=== PATIENT | female | born 1980 | race Caucasian/White ===

== ENCOUNTER 2020-03-07 09:01 | Emergency (ER) | payer OTHER, MEDICAID, SELFPAY ==
[2020-03-07 09:04] VITALS: BP 113/82; PULSE 104; RESP 18; TEMP 36.8; O2SAT 97; BMI 32.6
--- NOTE | 2020-03-07 09:13 | CT_ITS ---
WS: [id number] CT ABDOMEN PELVIS TECHNIQUE: Contrast-enhanced CT of the abdomen and pelvis with coronal and sagittal reformatted image s. CLINICAL INFORMATION: abd pain COMPARISON: None. DLP: 1659.[address] scans at [facility] use at least one of these dose optimization techniques: automat ed exposure control; mA and/or kV adjustment per patient size (includes targeted exams where dose is matched to clinical indication); or iterative reconstruction. FINDINGS: Mild diffuse fatty infiltration of the liver. Normal portal vein and splenic vein. Normal spleen. Pat fredo infiltrates in the left lower lobe. Recommend correlation for pneumonia. Tiny partially visualize d noncalcified nodule in the right middle lobe measuring 4 mm. 14 mm right adrenal adenoma. Normal left adrenal gland. Normal renal parenchymal enhancement. No hydr onephrosis. No evidence of small or large bowel obstruction. Normal caliber abdominal aorta. No abdominal lymphad enopathy. No inguinal or pelvic lymphadenopathy. Mild disc bulging L4-5. CT/CT abdomen pelvis w con* [id number] IMPRESSION: 1. Diffuse fatty infiltration of the liver. 2. 14 mm adrenal adenoma. 3. Hazy groundglass infiltrates left lower lobe. Recommend correlation for pne umonia. 4. 4 mm noncalcified nodule right middle lobe. Recommend 12 month follow-up ch est CT. 5. No obstructing renal parenchymal or ureteral calculi. 6. No free fluid in the pelvis. Attempted Marcos Suh DO at 03/07/2020 9:58 AM.
--- NOTE | 2020-03-07 09:23 | W.ED.ABDPA2 ---
HPI - Abdominal Pain General: Chief Complaint: Abdominal Pain Stated Complaint: luq pain Time Seen by Provider: 03/07/20 09:11 History of Present Illness: HPI narrative: 39-year-old female presents emergency room with complaint of abdominal pain off and on for last 2 days she not really notice any exacerbating or relieving factors not noticed any triggers eating or not eating does not seem to have made a difference. She had a similar episode a few months ago that resolved after not eating for about 24 hours. Today she relates most of her pain left upper quadrant. She has noted nausea vomiting and diarrhea. She denies any hematochezia melena hematemesis or coffee-ground emesis no dysuria urgency or frequency she does not drink alcohol at all. MD elicited complaint: abdominal pain Pertinent past history: none Onset (ago): day(s) (2) Pain Consistency: intermittent Location: LUQ Severity: moderate Quality: cramping Radiation: none Migration to: no migration Exacerbating factors: nothing Relieving factors: nothing Associated Symptoms: Reports anorexia, bloating, GI cramping, diarrhea, nausea and vomiting; Denies belching, change in bowel habits, change in stool character, chills, coffee ground emesis, constipation, dyspepsia, dysuria, excessive flatus, fever(s), heartburn, hematochezia, hematuria, hematemesis, fecal incontinence, loose stools, melena, poor appetite and syncope Review of Systems Const: Denies: fever(s) or chills ENMT: Denies: throat pain, ear or mastoid pain, nasal discharge or nasal congestion Card: Denies: syncope Resp: Denies: dyspnea, productive cough or non-productive cough GI: Reports: nausea, vomiting, diarrhea, bloating and GI cramping; Denies: hematemesis, coffee ground emesis, heartburn, constipation, belching, excessive flatus, fecal incontinence, change in bowel habits, change in stool character, hematochezia or melena : Denies: dysuria or hematuria Skin/Breast: Denies: rash or pruritus PFSH ED PFSH: Medical History (Updated 03/08/20 @ 22:11 by Ranjit Love MD) No significant past medical history Surgical History H/O wisdom tooth extraction Hx of tympanostomy tubes Social History Smoking and tobacco status: never smoked Alcohol intake: never Substance/Drug Use: never Lives independently: Yes Household members: children Marital status: Single Current occupational status: employed Current occupation: [employer] [place] Current occupational exposures/hazards: No History of recent travel: No Current gender identity: Female Physical Exam Const: COMMON NORMALS: average body habitus, patient oriented x3 and alert GENERAL APPEARANCE: cooperative, comfortable, well kempt and well developed NUTRITIONAL APPEARANCE: obese ORIENTATION/CONSCIOUSNESS: Yes awake, Yes oriented to person and Yes oriented to place HENMT: COMMON NORMALS: normocephalic, atraumatic and EAC's normal HEAD & SCALP: normocephalic and atraumatic EXTERNAL AUDITORY CANAL: EAC's normal Eye: COMMON NORMALS: Equal, round and reactive pupils present, EOMs intact bilaterally, conjunctivae normal and no scleral icterus CONJUNCTIVA: Yes conjunctivae normal PUPIL: Yes Equal, round and reactive pupils present Neck/C-Spine: COMMON NORMALS: full ROM, no lymphadenopathy, supple, no meningeal signs and Thyroid normal THYROID: Thyroid normal and asymmetrical Lymph: LYMPHATIC: no lymphadenopathy noted Resp: COMMON NORMALS: normal respiratory effort, No retractions, No use of accessory muscles and clear to auscultation bilaterally AUSCULTATION: clear to auscultation bilaterally Cardio: COMMON NORMALS: regular rate and regular rhythm RATE: regular rate RHYTHM: regular rhythm HEART SOUNDS: no murmurs GI: COMMON NORMALS: Normal to inspection, nondistended, normoactive bowel sounds present, Soft to palpation and No hepatosplenomegaly present PALPATION: Yes Soft to palpation, Yes Tenderness to palpation present (GI) Details: LUQ, No Guarding due to palpation present (GI), No Rigid due to palpation and Yes No hepatosplenomegaly present : COMMON NORMALS: Yes no CVA tenderness BLADDER/KIDNEY EXAM: Yes no CVA tenderness Back/Pelvis: COMMON NORMALS: no CVA tenderness LUMBAR SPINE/LOWER BACK: Yes normal to inspection Extremity: COMMON NORMALS: no clubbing, cyanosis or edema, no calf tenderness and no pedal edema Neuro: COMMON NORMALS: patient oriented x3 SENSORIUM/ORIENTATION: Yes alert, Yes oriented to person and Yes oriented to place MENINGEAL SIGNS: Yes no meningeal signs Psych: APPEARANCE: Yes well kempt Skin: COMMON NORMALS: no rashes or lesions noted and turgor normal GENERAL SKIN EXAM: no rashes or lesions noted and turgor normal Course Vital Signs: Vital signs: Vital Signs Temperature 98.2 F 03/07/20 09:04 Pulse Rate 75 03/07/20 11:44 Respiratory Rate 15 03/07/20 11:44 Blood Pressure 148/70 03/07/20 11:44 Pulse Oximetry 97 03/07/20 11:44 MDM - Abdominal Pain MDM Narrative: Medical decision making narrative: Patient does have mild changes on her chest x-ray and noted on the CT. Her rapid antigen is positive will back up with a PCR test. Advised patient to maintain quarantined for follow-up with employee health as well as discussed with her that health department would likely be calling her. She has any worsening change or problems return to the emergency room. Lab Data: Labs: Lab Results 03/07/20 03/07/20 03/07/20 Range/Units 09:24 09:24 09:24 WBC 4.5 (4.0-10.0) 10^3/ uL RBC 5.06 (4.1-5.3) 10^6/u L Hgb 13.6 (11.5-15.3) g/dL Hct 43.9 (37.0-47.0) % MCV 86.8 (81-99) fL MCH 26.9 L (28.0-34.0) pg MCHC 31.0 (30.0-36.0) g/dL RDW 13.9 (12.1-15.1) % Plt Count 440 H (130-400) 10^3/c mm MPV 9.1 (7.4-10.4) fL Neut % (Auto) 68.6 % Lymph % (Auto) 25.0 % [place] % (Auto) 6.0 % Eos % (Auto) 0.2 % Baso % (Auto) 0.2 % Neut # (Auto) 3.07 (1.8-7.7) 10^3/u L Lymph # (Auto) 1.1 (0.8-4.8) 10^3/u L [place] # (Auto) 0.3 (0.2-0.9) 10^3/u L Eos # (Auto) 0.0 (0.0-0.8) 10^3/u L Baso # (Auto) 0.0 (0.0-0.1) 10^3/u L Nucleated RBC % (a uto) 0 % Nucleated RBCs # 0.0 /100WBC Fibrinogen 513 H (174-498) mg/dL D-Dimer 0.54 (0-0.59) ug/mIFE U Sodium 140 (136-145) mmol/L Potassium 3.8 (3.5-5.1) mmol/L Chloride 102 (98-107) mmol/L Carbon Dioxide 26 (22-29) mmol/L Anion Gap 15.8 (5-19) BUN 11 (6-20) mg/dL Creatinine 1.0 H (0.5-0.9) mg/dL GFR Calculation 62.1 L (90-130) mL/min Glucose 106 (65-115) mg/dL Calculated Osmolal ity 286 (285-295) mOsm/k g Calcium 8.8 (8.5-10.5) mg/dL Ferritin (15-150) ng/mL Total Bilirubin 0.4 (0.15-1.2) mg/dL AST 100 H (0-32) U/L ALT 101 H (0-33) U/L Alkaline Phosphata se 97 (35-105) IU/L Lactate Dehydrogen ase (135-214) U/L Creatine Kinase 64 (26-192) U/L C-Reactive Protein (0.0-4.9) mg/L Total Protein 7.6 (6.6-8.7) g/dL Albumin 4.3 (3.5-5.2) g/dL Globulin 3.3 (1.3-4.6) g/dL Lipase 32 (13-60) U/L Procalcitonin (0-0.5) ng/mL Urine Color (Yellow) Urine Appearance (CLEAR) Urine pH (5-7) Ur Specific Gravit y (1.005-1.030) Urine Protein (Negative) Urine Glucose (UA) (Normal) Urine Ketones (Negative) Urine Blood (Negative) Urine Nitrate (Negative) Urine Bilirubin (NEGATIVE) Urine Urobilinogen (Negative) mg/dL Ur Leukocyte Trice ase (Negative) Urine RBC (0-2) /hpf Urine WBC (0-5) /hpf Ur Squamous Epith Cells (0-5) Amorphous Sediment Urine Bacteria (NONE) Urine Mucus Nasal/Oral COVID-1 9 PCR SARS-CoV-2 Ag (Rap id) (Negative) 03/07/20 03/07/20 03/07/20 Range/Units 09:24 10:20 10:20 WBC (4.0-10.0) 10^3/ uL RBC (4.1-5.3) 10^6/u L Hgb (11.5-15.3) g/dL Hct (37.0-47.0) % MCV (81-99) fL MCH (28.0-34.0) pg MCHC (30.0-36.0) g/dL RDW (12.1-15.1) % Plt Count (130-400) 10^3/c mm MPV (7.4-10.4) fL Neut % (Auto) % Lymph % (Auto) % [place] % (Auto) % Eos % (Auto) % Baso % (Auto) % Neut # (Auto) (1.8-7.7) 10^3/u L Lymph # (Auto) (0.8-4.8) 10^3/u L [place] # (Auto) (0.2-0.9) 10^3/u L Eos # (Auto) (0.0-0.8) 10^3/u L Baso # (Auto) (0.0-0.1) 10^3/u L Nucleated RBC % (a uto) % Nucleated RBCs # /100WBC Fibrinogen (174-498) mg/dL D-Dimer (0-0.59) ug/mIFE U Sodium (136-145) mmol/L Potassium (3.5-5.1) mmol/L Chloride (98-107) mmol/L Carbon Dioxide (22-29) mmol/L Anion Gap (5-19) BUN (6-20) mg/dL Creatinine (0.5-0.9) mg/dL GFR Calculation (90-130) mL/min Glucose (65-115) mg/dL Calculated Osmolal ity (285-295) mOsm/k g Calcium (8.5-10.5) mg/dL Ferritin 78 (15-150) ng/mL Total Bilirubin (0.15-1.2) mg/dL AST (0-32) U/L ALT (0-33) U/L Alkaline Phosphata se (35-105) IU/L Lactate Dehydrogen ase 303 H (135-214) U/L Creatine Kinase (26-192) U/L C-Reactive Protein 16.8 H (0.0-4.9) mg/L Total Protein (6.6-8.7) g/dL Albumin (3.5-5.2) g/dL Globulin (1.3-4.6) g/dL Lipase (13-60) U/L Procalcitonin 0.08 (0-0.5) ng/mL Urine Color (Yellow) Urine Appearance (CLEAR) Urine pH (5-7) Ur Specific Gravit y (1.005-1.030) Urine Protein (Negative) Urine Glucose (UA) (Normal) Urine Ketones (Negative) Urine Blood (Negative) Urine Nitrate (Negative) Urine Bilirubin (NEGATIVE) Urine Urobilinogen (Negative) mg/dL Ur Leukocyte Trice ase (Negative) Urine RBC (0-2) /hpf Urine WBC (0-5) /hpf Ur Squamous Epith Cells (0-5) Amorphous Sediment Urine Bacteria (NONE) Urine Mucus Nasal/Oral COVID-1 9 PCR Positive H SARS-CoV-2 Ag (Rap id) Positive H (Negative) 03/07/20 Range/Units 11:19 WBC (4.0-10.0) 10^3/ uL RBC (4.1-5.3) 10^6/u L Hgb (11.5-15.3) g/dL Hct (37.0-47.0) % MCV (81-99) fL MCH (28.0-34.0) pg MCHC (30.0-36.0) g/dL RDW (12.1-15.1) % Plt Count (130-400) 10^3/c mm MPV (7.4-10.4) fL Neut % (Auto) % Lymph % (Auto) % [place] % (Auto) % Eos % (Auto) % Baso % (Auto) % Neut # (Auto) (1.8-7.7) 10^3/u L Lymph # (Auto) (0.8-4.8) 10^3/u L [place] # (Auto) (0.2-0.9) 10^3/u L Eos # (Auto) (0.0-0.8) 10^3/u L Baso # (Auto) (0.0-0.1) 10^3/u L Nucleated RBC % (a uto) % Nucleated RBCs # /100WBC Fibrinogen (174-498) mg/dL D-Dimer (0-0.59) ug/mIFE U Sodium (136-145) mmol/L Potassium (3.5-5.1) mmol/L Chloride (98-107) mmol/L Carbon Dioxide (22-29) mmol/L Anion Gap (5-19) BUN (6-20) mg/dL Creatinine (0.5-0.9) mg/dL GFR Calculation (90-130) mL/min Glucose (65-115) mg/dL Calculated Osmolal ity (285-295) mOsm/k g Calcium (8.5-10.5) mg/dL Ferritin (15-150) ng/mL Total Bilirubin (0.15-1.2) mg/dL AST (0-32) U/L ALT (0-33) U/L Alkaline Phosphata se (35-105) IU/L Lactate Dehydrogen ase (135-214) U/L Creatine Kinase (26-192) U/L C-Reactive Protein (0.0-4.9) mg/L Total Protein (6.6-8.7) g/dL Albumin (3.5-5.2) g/dL Globulin (1.3-4.6) g/dL Lipase (13-60) U/L Procalcitonin (0-0.5) ng/mL Urine Color Red (Yellow) Urine Appearance Hazy A (CLEAR) Urine pH 5 (5-7) Ur Specific Gravit y 1.010 (1.005-1.030) Urine Protein 1+ H (Negative) Urine Glucose (UA) Norm (Normal) Urine Ketones 1+ H (Negative) Urine Blood 3+ H (Negative) Urine Nitrate Negative (Negative) Urine Bilirubin 1+ H (NEGATIVE) Urine Urobilinogen 1 H (Negative) mg/dL Ur Leukocyte Trice ase Trace H (Negative) Urine RBC >100 H (0-2) /hpf Urine WBC 5-10 H (0-5) /hpf Ur Squamous Epith Cells 0-4 H (0-5) Amorphous Sediment Not Reportable Urine Bacteria 1+ H (NONE) Urine Mucus 1+ Nasal/Oral COVID-1 9 PCR SARS-CoV-2 Ag (Rap id) (Negative) Discharge Plan Discharge Patient Disposition: Home Clinical Impression: Pneumonia due to 2019 novel coronavirus Condition: Stable Prescriptions: New dexamethasone 6 mg tablet 6 mg PO Q24H Qty: 7 RF: 0 No Action ondansetron HCl [Zofran] 4 mg tablet 4 mg PO Q8H PRN (Reason: nausea and vomiting) Qty: 14 RF: 0 azithromycin 500 mg tablet 500 mg PO DAILY 5 Days Qty: 5 RF: 0 Tylenol Extra Strength 500 mg Tablet 500 mg PO PRN RF: 0 ibuprofen 200 mg Tablet 800 mg PO PRN RF: 0 Suphedrine PE 10 mg Tablet 10 mg PO PRN RF: 0 Discharge Orders: Discharge Order (Routine); Ordered 03/07/20 Ordered By: Marcos Suh Discharge Date/Time: 03/07/20 11:45 Coding Level of Care Code ED Material Requisitioner for Chg Fwd Exam Comprehensive
[2020-03-07] MEDS: iohexol 300 mg/mL 100 mL Btl IV (09:29)
[2020-03-07 09:38] VITALS: RESP 16
[2020-03-07] MEDS: morphine 4 mg/mL SDV 1 mL IVP (09:38)
[2020-03-07] MEDS: sodium chloride 0.9% 1,000 ML 999 ML IV (09:38)
[2020-03-07 09:42] LABS: Basophils % 0.2 %; Eosinophils % 0.2 %; Hematocrit 43.9 % (37.0-47.0); Hemoglobin 13.6 g/dL (11.5-15.3); Lymphocytes # 1.1 10^3/uL (0.8-4.8); Mean Corpuscular Hemoglobin 26.9 pg (28.0-34.0); Mean Corpuscular Volume 86.8 fL (81-99); Mean Platelet Volume 9.1 fL (7.4-10.4); Monocytes # 0.3 10^3/uL (0.2-0.9); Neutrophils # 3.07 10^3/uL (1.8-7.7); Neutrophils % 68.6 %; Nucleated Red Blood Cells % 0 %; Platelet Count 440 10^3/cmm (130-400); Red Blood Count 5.06 10^6/uL (4.1-5.3); Red Cell Distribution Width 13.9 % (12.1-15.1); White Blood Count 4.5 10^3/uL (4.0-10.0)
[2020-03-07 09:54] LABS: Alanine Aminotransferase 101 U/L (0-33); Albumin Level 4.3 g/dL (3.5-5.2); Alkaline Phosphatase 97 IU/L (35-105); Anion Gap 15.8 (5-19); Aspartate Amino Transferase 100 U/L (0-32); Blood Urea Nitrogen 11 mg/dL (6-20); Calcium 8.8 mg/dL (8.5-10.5); Carbon Dioxide 26 mmol/L (22-29); Chloride 102 mmol/L (98-107); Creatine Phosphokinase 64 U/L (26-192); Globulin 3.3 g/dL (1.3-4.6); Glomerular Filtration Rate 62.1 mL/min (90-130); Glucose 106 mg/dL (65-115); Lipase 32 U/L (13-60); Osmolality Calculated 286 mOsm/kg (285-295); Potassium 3.8 mmol/L (3.5-5.1); Sodium 140 mmol/L (136-145); Total Bilirubin 0.4 mg/dL (0.15-1.2); Total Protein 7.6 g/dL (6.6-8.7)
--- NOTE | 2020-03-07 10:08 | XR_ITS ---
WS: [id number] CHEST XRAY TECHNIQUE: Portable chest. CLINICAL INFORMATION: dyspnea/cough COMPARISON: None. FINDINGS: Heart: Normal cardiac silhouette. Lungs: Slight patchy hazy infiltrates left upper lobe laterally. Recommend correlation for pneumonia. Right lung is well aerated. Calcified granuloma right lower lobe. Bones: Normal visualized bony structures. XR/XR chest 1V portable [id number] IMPRESSION: Slight patchy hazy infiltrates left upper lobe laterally. Recommend correlation for pneumonia.
[2020-03-07 10:36] LABS: Fibrinogen 513 mg/dL (174-498)
[2020-03-07 10:38] LABS: Procalcitonin 0.08 ng/mL (0-0.5)
[2020-03-07 10:39] LABS: D Dimer 0.54 ug/mIFEU (0-0.59)
[2020-03-07 10:48] LABS: C Reactive Protein 16.8 mg/L (0.0-4.9); Ferritin 78 ng/mL (15-150); Lactate Dehydrogenase 303 U/L (135-214)
[2020-03-07 10:55] LABS: SARS Covid-2 Antigen Positive (Negative)
--- NOTE | 2020-03-07 11:39 | DCPLANNER ---
manager presentation was asked to schedule a virtual visit for patient with Dr. Jerome. manager presentation called [facility], spoke with Kathie, a follow up appointment was scheduled for Friday, March 08, 2020 at 3:[address] Stauffer, Dr. Jerome is out of the office this week. manager presentation gave appointment information to nurse to give to patient. Clinic will call patient and explain how to complete a virtual visit.
[2020-03-07 11:43] LABS: Blood Urine 3+ (Negative); Glucose Urine UA Norm (Normal); Ketones Urine 1+ (Negative); Nitrate Urine Negative (Negative); Protein Urine 1+ (Negative); Urine Appearance Hazy (CLEAR); Urine Color Red (Yellow); pH Urine 5 (5-7)
[2020-03-07 11:44] VITALS: BP 148/70; PULSE 75; RESP 15; O2SAT 97
[2020-03-07 11:44] LABS: Add Urine Microscopic? YES; Bilirubin Urine 1+ (NEGATIVE); Leukocyte Esterase Urine Trace (Negative); Urobilinogen Urine 1 mg/dL (Negative)
[2020-03-07 11:45] LABS: RBC Urine >100 /hpf (0-2); Squamous Epithelial Cell Urine 0-4 (0-5)
[2020-03-07 11:46] LABS: Add Urine Culture? Yes; Bacteria Urine 1+; Mucus Urine 1+
[2020-03-08 13:28] LABS: Coronavirus Lab Test PTC Positive
--- NOTE | 2020-03-08 16:36 | PC.NURSE ---
PT CONTACTED AND INFORMED OF HER POSITIVE COVID RESULTS.
--- NOTE | 2020-03-28 07:57 | DCPLANNER ---
Patient had a follow up appointment scheduled for 03.08.20 with [facility] - patient did attend the appointment.
== END 2020-03-07 11:45 | disposition home or self-care (01) ==
PROVIDERS: Emergency Provider Family Medicine
DX: U07.1 COVID-19 (principal); J12.89 Other viral pneumonia
CPT/HCPCS: 12345; 71045; 74177; 80053; 81001; 82550; 82728; 83615; 83690; 84145; 85025; 85378; 85384; 86140; 87086; 87426; 87635; 96361; 96374; 96375; 99282; 99284; J2270; J7030; Q9967

== ENCOUNTER 2021-08-08 19:24 | Emergency (ER) | payer OTHER, SELFPAY ==
--- NOTE | 2021-08-08 19:25 | XRR_ITS ---
PROCEDURE INFORMATION: Exam: XR Left Ankle Exam date and time: 08/08/2021 7:25 PM Age: 40 years old Clinical indication: Injury or trauma; Fall; Work related; Swelling (edema); Ankle; Left; Additional info: Injury, fall on hard surface while at work, landed on ankle. Painful to walk and dorsiflex toes TECHNIQUE: Imaging protocol: XR Left ankle. Views: 3 or more views. COMPARISON: No relevant prior studies available. FINDINGS: Bones/joints: Alignment is normal. No acute fracture. Soft tissues: Visible soft tissues are unremarkable. XR/XR ankle LT min 3V* [id number] IMPRESSION: No acute fracture.
[2021-08-08 19:44] VITALS: BP 144/92; PULSE 99; RESP 20; TEMP 36.6; O2SAT 98; BMI 36.4
--- NOTE | 2021-08-08 20:05 | W.ED.EXTPRO ---
HPI - Extremity Problem General: Chief complaint: Extremity Problem,Nontraumatic Stated complaint: juliet lou injury Time Seen by Provider: 08/08/21 20:05 History of Present Illness: 40-year-old female patient comes in today for complaints of injury to the left lateral ankle. Patient reports she was going into the cafeteria today at work and slipped causing her to injure her ankle. Patient appears well. Patient appears in moderate pain. Onset (ago): hour(s) Pain Consistency: constant Location: lower extremity Relieving factors: rest Exacerbating factors: weight bearing Review of Systems Musc: Reports: joint pain (Left ankle) and joint swelling (Left ankle) PFS ED PFSH: Medical History (Updated 08/08/21 @ 20:13 by JENNIFER Moraes) Left ankle sprain No significant past medical history Surgical History (System 11/29/20 @ 11:26 by Iraida Friedman) H/O wisdom tooth extraction Hx of tympanostomy tubes Social History (System 11/29/20 @ 11:26 by Iraida Friedman) Smoking and tobacco status: never smoked Alcohol intake: never Lives independently: Yes Household members: children Marital status: Single Current occupational status: employed Current [place]: [employer] [place] Current occupational exposures/hazards: No History of recent travel: No Current gender identity: Female Physical Exam Const: COMMON NORMALS: alert HENMT: COMMON NORMALS: atraumatic HEAD & SCALP: atraumatic Neck/C-Spine: COMMON NORMALS: full ROM Resp: COMMON NORMALS: normal respiratory effort Cardio: COMMON NORMALS: regular rate and regular rhythm RATE: regular rate RHYTHM: regular rhythm Extremity: LEFT LOWER EXTREMITY: Yes ankle joint (Lateral swelling with mild ecchymosis, pulses intact) Left ankle: Yes inspection, Yes palpation, Yes ROM and Yes neurovascular exam Neuro: SENSORIUM/ORIENTATION: Yes alert Psych: COMMON NORMALS: cooperative Skin: COMMON NORMALS: no rashes or lesions noted GENERAL SKIN EXAM: no rashes or lesions noted Course Vital Signs: Vital signs: Vital Signs Temperature 98 F 08/08/21 19:44 Pulse Rate 99 08/08/21 19:44 Respiratory Rate 20 H 08/08/21 19:44 Blood Pressure 144/92 08/08/21 19:44 Pulse Oximetry 98 08/08/21 19:44 MDM - Extremity (Nontraumatic) Medical Decision Making 40-year-old female comes in today with injury to left ankle. On exam patient has lateral swelling to the ankle, positive pulses, normal sensation. Differential diagnosis includes fracture, sprain, dislocation. X-rays noted no dislocation or fracture. Patient be treated for sprain. Crutches and increase ambulation as tolerated. Patient reported understanding agreed to plan. Lab Data Radiology Impressions Ankle X-Ray 08/08/21 19:25 IMPRESSION: No acute fracture. Discharge Plan Discharge Patient Disposition: Home Clinical Impression: Left ankle sprain Qualifiers: Encounter type: initial encounter Involved ligament of ankle: unspecified ligament Qualified Code(s): S93.402A - Sprain of unspecified ligament of left ankle, initial encounter Condition: Stable Prescriptions: Discontinued azithromycin 500 mg tablet 500 mg PO DAILY 5 Days Qty: 5 0RF dexamethasone 6 mg tablet 6 mg PO Q24H Qty: 7 0RF Rx Instructions: for up to 10 days No Action ondansetron HCl [Zofran] 4 mg tablet 4 mg PO Q8H PRN (Reason: nausea and vomiting) Qty: 14 0RF Tylenol Extra Strength 500 mg Tablet 500 mg PO PRN 0RF ibuprofen 200 mg Tablet 800 mg PO PRN 0RF Suphedrine PE 10 mg Tablet 10 mg PO PRN 0RF Discharge Orders: Discharge ED (Routine); Ordered 08/08/21 Ordered By: Ashok Michaud Other Ambulatory Orders: DME: Cane/ Crutches (Order) Location: None Selected Ordered By: Ashok Michaud Discharge Diet: Usual diet Discharge Activity: Increase activity as tolerated Patient Instructions: Ankle Sprain (ED) Activity Restrictions/Additional Instructions: Activity as tolerated. Elevate and rest ankle for the next 48 hours. Use crutches until he can bear weight comfortably. Follow-up with primary care in 1 week for persistent symptoms. Return to the ER for new concerns. Wear splint for the next 4 to 6 weeks to protect from reinjury of the ankle. Stand Alone Forms: Work/School Release Coding Level of Care Code ED Manager Medicare Marketing for Ramin Carter
== END 2021-08-08 20:29 | disposition home or self-care (01) ==
PROVIDERS: Emergency Provider Nurse Practitioner Family
DX: S93.402A Sprain of unspecified ligament of left ankle, initial encounter (principal); W01.0XXA Fall on same level from slipping, tripping and stumbling without subsequent striking against object, initial encounter
CPT/HCPCS: 73610; 99282

== ENCOUNTER 2022-11-28 19:19 | Emergency (ER) | payer OTHER, SELFPAY ==
[2022-11-28 19:26] VITALS: BMI 36.9
[2022-11-28 19:29] VITALS: BP 125/74; PULSE 81; RESP 18; TEMP 36.6; O2SAT 98
--- NOTE | 2022-11-28 20:01 | ED_ITS ---
HPI - Back Pain/Injury General: Chief Complaint: Back Pain/Injury Stated Complaint: right lowwer back pain Time Seen by Provider: 11/28/22 19:46 Source: patient Mode of arrival: ambulatory Limitations: no limitations History of Present Illness: Was involved in patient care earlier today with some twisting turning bending and lifting and noted a pulling sensation in her right lower back. She continue d to work throughout the rest of her shift and had increasing symptoms throughout that time. She states that the pain seems to radiate down her leg somewhat. She denies any history of significant low back pain or injury. She denies any loss of bowel or bladder control weakness or numbness chest pain. MD elicited complaint: back pain Severity: moderate Quality: dull Location: right lower back Radiation: right upper leg Exacerbating factors: movement Associated symptoms: Reports no associated symptoms [facility] ED PFSH: Medical History Left ankle sprain No significant past medical history Surgical History H/O wisdom tooth extraction Hx of tympanostomy tubes Social History Smoking and tobacco status: never smoked Alcohol intake: never Substance/Drug Use: never Lives independently: Yes Household members: children Marital status: Single Current occupational status: employed Current occupation: [employer] Current occupational exposures/hazards: No Do you think of yourself as: Straight/Heterosexual Current gender identity: Female Female Reproductive History: Date of last menstrual period: 11/07/22 Physical Exam Narrative: EXAM NARRATIVE: She moves slowly but is able to transfer in and out of bed and change positions without too much difficulty. Const: COMMON NORMALS: no acute distress, average body habitus, patient oriented x3 and alert GENERAL APPEARANCE: cooperative HENMT: COMMON NORMALS: normocephalic, Normal nasal mucous membranes and turbi nates present and moist oral mucous membranes HEAD & SCALP: normocephalic NOSE: Normal nasal mucous membranes and turbinates present Eye: COMMON NORMALS: Equal, round and reactive pupils present PUPIL: Yes Equal, round and reactive pupils present Neck/C-Spine: COMMON NORMALS: full ROM Chest: COMMONS NORMALS: normal inspection of the chest Resp: COMMON NORMALS: normal respiratory effort EFFORT & INSPECTION: Yes able to speak in complete sentences Cardio: COMMON NORMALS: regular rate, regular rhythm and Peripheral pulses 2+ throughout RATE: regular rate RHYTHM: regular rhythm PERIPHERAL PULSES: Peripheral pulses 2+ throughout GI: COMMON NORMALS: Normal to inspection, nondistended, normoactive bowel sounds present : COMMON NORMALS: Yes no CVA tenderness BLADDER/KIDNEY EXAM: Yes no CVA tenderness Back/Pelvis: COMMON NORMALS: no CVA tenderness and straight leg raise negative bilaterally THORACIC SPINE/UPPER BACK: Yes normal to inspection, Yes thoracic ROM normal and No thoracic spinal tenderness LUMBAR SPINE/LOWER BACK: Yes straight leg raise negative bilaterally SACROILIAC JOINTS: Yes SI joint(s) abnormal SI joint details: tender to palpation (Right) OTHER: No midline or axial tenderness of the thoracic lumbar spine. Tenderness over the soft tissues of the parous spinal region as well as the right superior iliac spine region. Tenderness over the sciatic notch. Internal and external rotation of the right hip particularly external rotation reproduces symptoms. Rotational activity either left or right reproduces symptoms and returning to standing position from forward bending approximate 35 degrees reproduces symptoms. BACK IMAGE (FEMALE): 1. Area of tenderness over the right paravertebral and right posterior superior iliac spine region 2. Tenderness to direct pressure over the sciatic notch and over the sciatic nerve. Extremity: COMMON NORMALS: normal to inspection, full ROM, capillary refill normal and no calf tenderness Neuro: COMMON NORMALS: patient oriented x3, moves all extremities, no focal motor deficits, no sensory deficits noted and deep tendon reflexes 2+ bilaterally SENSORIUM/ORIENTATION: Yes alert CRANIAL NERVES: Yes CN normal except as noted Psych: COMMON NORMALS: mental status grossly normal Skin: COMMON NORMALS: no rashes or lesions noted, no wounds and turgor normal GENERAL SKIN EXAM: no rashes or lesions noted and turgor normal Course Reevaluation(s): Reevaluation #1: After discussion with the patient she agreed to proceed. We did a isolated trigger point injection of 1% lidocaine approximately 3 mL through the soft ti ssue surrounding the area of maximal tenderness over the right posterior superior iliac spine soft tissue. Done in aseptic technique and she tolerated procedure well. 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 She states she was engaged in normal patient care activity and felt a pulling sensation in her right lower back but continued to engage in her normal activities. Stent symptoms have increased throughout the the rest of her shift with some radiation down her leg. No prior history of significant back issues and no red flags present today. Examination supports sacroiliac inflammation with likely psoas strain as well with some associated sciatica. Trigger point injection was completed. We will also prescribe Lidoderm patch for her have her continue on a limited activity for the next 48 hours to improve her return to activity and resolution of her symptoms. We also discussed reasons to return to the emergency department or occupational health facility for reevaluation. Discharge Plan Discharge Patient Disposition: Home Clinical Impression: Strain of lumbar region, Sciatica, Somatic dysfunction of right sacroiliac joint Condition: Stable Prescriptions: New lidocaine [Lidoderm] 5 % adhesive patch,medicated 1 patch topical Q24H Qty: 15 0RF Rx Instructions: leave on most painful area for up to 12 hrs No Action ondansetron HCl [Zofran] 4 mg tablet 4 mg PO Q8H PRN (Reason: nausea and vomiting) Qty: 14 0RF [id number]-PI 3.5-10,000-1 mg/mL-unit/mL-% solution 4 drp otic (ear) Q8H 7 Days Qty: 10 0RF Tylenol Extra Strength 500 mg Tablet 500 mg PO PRN ibuprofen 200 mg Tablet 800 mg PO PRN Discharge Orders: Discharge ED (Routine); Ordered 11/28/22 Ordered By: Cliff Blake Referrals: Janet Fox MD [Primary Care Provider] - 4-7 days (ED follow-up with back pain) Discharge Diet: Usual diet Discharge Activity: Limit activity as instructed Patient Instructions: Opioid Safety, Pain Management Activity Restrictions/Additional Instructions: As we discussed you have strained and temporary pain and injury to the tissues of your right lumbar sacral region. We then injected some local anesthetic in the tender area there to help improve your symptoms. We have also prescribed a Lidoderm patch to help with pain control. We advised taking either ibuprofen or Aleve in the usual recommended [id number] doses with meals for the next 3 days. Also using ice to that area will give you some relief. We expect a gradual but steady improvement over the next 3 to 5 days. If your symptoms do not improve, worsen or new symptoms develop as we discussed return to this or the nearest emergency department. We recommend doing some gentle stretching exercises as we discussed. Keep as active as possible and do not gauge any prolonged bedrest. 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
[2022-11-28] MEDS: lidocaine 1% INJ 10 mL (per mL) 20 ML INJECTION (20:10)
--- NOTE | 2022-11-28 20:11 | PC.NURSE ---
Lidocaine given to Dr. Blake to administer per orders.
[2022-11-28] MEDS: lidocaine 5% Patch 1 PATCH TOPICAL (20:45)
[2022-11-28] MEDS: naproxen 500 mg Tablet PO (20:46)
== END 2022-11-28 20:49 | disposition home or self-care (01) ==
PROVIDERS: Emergency Provider Emergency Medicine; PCP Internal Medicine
DX: S39.012A Strain of muscle, fascia and tendon of lower back, initial encounter (principal); M54.30 Sciatica, unspecified side; M99.04 Segmental and somatic dysfunction of sacral region; X50.0XXA Overexertion from strenuous movement or load, initial encounter; Y93.F2 Activity, caregiving, lifting
CPT/HCPCS: 99283

== ENCOUNTER 2022-12-12 13:41 | Outpatient (CLI) | payer OTHER, SELFPAY ==
--- NOTE | 2022-12-12 13:30 | CT_ITS ---
WS: [id number] CT LUMBAR SPINE TECHNIQUE: Noncontrast CT of the lumbar spine with coronal and sagittal reformatted images. CLINICAL INFORMATION: unrelenting pain and disability 2 weeks post injury at workp COMPARISON: None. DLP: 920.[address] scans at [facility] use at least one of these dose optimization techniques: automated e xposure control; mA and/or kV adjustment per patient size (includes targeted exams where dose is matc hed to clinical indication); or iterative reconstruction. FINDINGS: Mild lumbar curve. No acute compression. Mild disc bulging L4-L5 and L5-S1. L1-L2: Normal. L2-L3: No significant disc bulging. Mild facet arthropathy. Spinal canal and foramen are patent. L3-L4: No significant disc bulging. Mild facet arthropathy. Spinal canal and foramen are patent. L4-L5: Shallow central disc protrusion with moderate central canal stenosis. Impingement traversing L 5 nerve roots bilaterally. Moderate facet arthropathy. This can be further evaluated with MRI. Mild b ilateral foraminal narrowing. L5-S1: Mild annular bulging with slight contact of the RIGHT S1 nerve root. Moderate facet arthropath y. Spinal canal and foramen are patent. Visualized pelvic bony structures: Normal. Paravertebral soft tissues: Normal. RIGHT adrenal adenoma measuring 16 mm. Normal LEFT adrenal gland. CT/CT lumbar spine wo con* [id number] IMPRESSION: 1. Shallow central disc protrusion L4-L5 with moderate central canal stenosis. Impingement traversing L5 nerve roots bilaterally. This can be further evaluat ed with MRI. 2. Annular bulging L5-S1 with slight contact of the RIGHT S1 nerve root. 3. Moderate facet arthropathy L4-L5 and L5-S1.
== END 2022-12-12 13:42 | disposition home or self-care (01) ==
LOC: RAD 13:45
PROVIDERS: PCP Internal Medicine; Visit Provider Family Medicine
DX: M51.37 Other intervertebral disc degeneration, lumbosacral region (principal); M51.26 Other intervertebral disc displacement, lumbar region; M51.27 Other intervertebral disc displacement, lumbosacral region
CPT/HCPCS: 72131

== ENCOUNTER 2023-01-09 08:34 | Outpatient (RCR) | payer OTHER, SELFPAY | END 2023-01-27 23:59 | disposition home or self-care (01) | LOC: SPT 08:34 | PROVIDERS: Visit Provider Family Medicine | DX: S39.012D Strain of muscle, fascia and tendon of lower back, subsequent encounter (principal); X58.XXXD Exposure to other specified factors, subsequent encounter | CPT/HCPCS: 97110; 97140; 97162; G0283 ==

== ENCOUNTER → 2023-03-12 12:48 | Outpatient (BNVA) | payer OTHER, MEDICAID, SELFPAY | PROVIDERS: PCP Family Medicine; Referring Provider Nurse Practitioner Family; Visit Provider Internal Medicine | DX: D35.00 Benign neoplasm of unspecified adrenal gland (principal); R63.5 Abnormal weight gain; Z68.37 Body mass index [BMI] 37.0-37.9, adult | CPT/HCPCS: 36415; 80053; 82088; 84244; 99204 ==

== ENCOUNTER → 2023-09-08 16:22 | Outpatient (BNVA) | payer MEDICAID, SELFPAY | PROVIDERS: PCP Family Medicine; Visit Provider Nurse Practitioner Family | DX: R06.09 Other forms of dyspnea (principal) | CPT/HCPCS: 71046 ==

== ENCOUNTER 2023-10-01 20:17 | Emergency (ER) | payer MEDICAID, SELFPAY ==
--- NOTE | 2023-10-01 20:20 | XRR_ITS ---
PROCEDURE INFORMATION: Exam: XR Right Foot Exam date and time: 10/01/2023 9:32 PM Age: 42 years old Clinical indication: Injury or trauma; Other: Walking; Swelling (edema); Foot; Right TECHNIQUE: Imaging protocol: Radiologic exam of the right foot. Views: 3 or more views. COMPARISON: CR (LOW EXM, ) 10/01/2023 9:32 PM FINDINGS: Bones/joints: Normal. Soft tissues: Normal. XR/XR foot RT min 3V* [id number] IMPRESSION: No acute findings.
--- NOTE | 2023-10-01 20:20 | XRR_ITS ---
PROCEDURE INFORMATION: Exam: XR Right Ankle Exam date and time: 10/01/2023 9:32 PM Age: 42 years old Clinical indication: Injury or trauma; Other: Walking; Swelling (edema); Ankle; Right TECHNIQUE: Imaging protocol: Radiologic exam of the right ankle. Views: 3 or more views. COMPARISON: CR XR foot RT min 3V* [id number] 10/01/2023 9:32 PM FINDINGS: Bones/joints: Chronic appearing calcifications at the fibular and medial malleolar tips. Small calcified heel spur. Distal Achilles tendon degenerative calcification. Soft tissues: Normal. XR/XR ankle RT min 3V* [id number] IMPRESSION: 1. Negative for fracture or dislocation. 2. Chronic appearing calcifications at the fibular and medial malleolar tips. 3. Small calcified heel spur. 4. Distal Achilles tendon degenerative calcification.
[2023-10-01 20:32] VITALS: BP 125/74; PULSE 94; RESP 16; TEMP 36.6; O2SAT 99; BMI 31.8
--- NOTE | 2023-10-01 20:41 | W.ED.EXTPRO ---
Documented by User: TC Gonzalez 10/01/23 22:29 HPI - Extremity Problem General: Chief complaint: Extremity Injury, Lower Stated complaint: right foot and ankle injury post fall Time Seen by Provider: 10/01/23 20:32 Source: patient Mode of arrival: wheelchair Limitations: no limitations History of Present Illness: Patient is a 42-year-old female presenting to the emergency department complaining of right foot and ankle pain onset today. Patient notes she tripped while walking up her steps at home, injuring her right foot and ankle in the process. This occurred at approximately 1630. While she is able to tell me how she fell, she is unable to tell me what happened to her foot and why it is causing her pain. She is unsure if it was a twisting injury or a direct contact. She does note history of multiple ankle sprains as well as a previous unspecified surgery to the right ankle. She states most of the pain is on the dorsal aspect, with some pain in the arch. She tried ambulating on it immediately afterwards, but was unable to due to the pain. She took Tylenol and has iced, also reports no relief. She denies any deformities, bruising, significant swelling, or any other symptoms at this time. No knee pain or distal toe pain. MD Complaint: extremity pain (Foot) and joint pain (Ankle) Onset (ago): hour(s) Pain Consistency: constant Location: right Radiation: none Relieving factors: nothing Exacerbating factors: range of motion, weight bearing and walking Associated symptoms: Reports no associated symptoms; Deny chest pain, fever(s) or rash Review of Systems General: Reports: 10 or more systems reviewed and unremarkable except in HPI and below Const: Denies: fever(s), chills or fatigue Eyes: Denies: change in vision ENMT: Denies: throat pain, ear or mastoid pain or nasal discharge Card: Denies: chest pain, palpitations, swelling of feet/ankles or lightheadedness Resp: Denies: dyspnea, productive cough or wheezing GI: Denies: abdominal pain, nausea, vomiting, diarrhea or constipation : Denies: flank pain, difficulty voiding, dysuria or urinary frequency Musc: Reports: extremity pain (Right foot) and joint pain (Right ankle); Denies: neck pain, back pain, extremity swelling, joint swelling, joint redness or joint warmth Skin/Breast: Denies: rash Neuro: Denies: headache(s), numbness in extremities or weakness in extremities PFSH ED PFSH: Medical History Left ankle sprain No significant past medical history Surgical History H/O wisdom tooth extraction Hx of tympanostomy tubes Social History Smoking and tobacco/nicotine status: never used tobacco/nicotine Alcohol intake: never Substance/Drug Use: never Lives independently: Yes Household members: children Marital status: Single Current occupational status: employed Current occupation: [employer] – [place] Current occupational exposures/hazards: No Do you think of yourself as: Straight/Heterosexual Current gender identity: Female Physical Exam Const: COMMON NORMALS: no acute distress, patient oriented x3 and no limitations GENERAL APPEARANCE: cooperative, comfortable and well developed ORIENTATION/CONSCIOUSNESS: Yes awake, Yes oriented to person, Yes oriented to place and Yes oriented to time HENMT: COMMON NORMALS: normocephalic, atraumatic and hearing grossly normal bilaterally HEAD & SCALP: normocephalic and atraumatic Eye: COMMON NORMALS: EOMs intact bilaterally and conjunctivae normal CONJUNCTIVA: Yes conjunctivae normal Neck/C-Spine: COMMON NORMALS: full ROM Resp: COMMON NORMALS: normal respiratory effort, No retractions, No use of accessory muscles and clear to auscultation bilaterally AUSCULTATION: clear to auscultation bilaterally Cardio: COMMON NORMALS: regular rate, regular rhythm, No clicks present (Cardio), No murmurs present (Cardio) and No rub (Cardio) RATE: regular rate RHYTHM: regular rhythm Extremity: NARRATIVE EXTREMITY EXAM: Minimal to moderate tenderness to palpation about the dorsal aspect of the proximal foot. No obvious bruising or deformities. Also some mild tenderness to palpation of the arch of the right foot. She has some tenderness palpation about the medial and lateral malleolus, medial worse than lateral. Positive ankle squeeze. Negative calcaneal squeeze. Negative anterior drawer. Distal neurovascular exam intact. Pain with range of motion in all rubi, worse with dorsiflexion. Neuro: COMMON NORMALS: patient oriented x3, moves all extremities, no focal motor deficits and no sensory deficits noted SENSORIUM/ORIENTATION: Yes oriented to person, Yes oriented to place and Yes oriented to time Psych: COMMON NORMALS: mental status grossly normal and Normal thought process present THOUGHT PROCESS: Normal thought process present Skin: COMMON NORMALS: no rashes or lesions noted GENERAL SKIN EXAM: no rashes or lesions noted Course Vital Signs: Vital signs: Vital Signs Temperature 97.9 F 10/01/23 20:32 Pulse Rate 83 10/01/23 22:32 Respiratory Rate 16 10/01/23 22:32 Blood Pressure 121/79 10/01/23 22:32 Pulse Oximetry 99 10/01/23 22:32 MDM - Extremity (Nontraumatic) Medical Decision Making This patient was seen and evaluated due to acute onset of right foot and ankle pain status post fall today. On arrival patient's vitals normal and have remained stable throughout the course. Examination remarkable for some diffuse tenderness to palpation of the right foot, pain with all range of motion. I was able to appreciate a positive syndesmotic squeeze test of the ankle. Gave patient shot of Toradol, stating she feels better upon recheck. X-ray of the right foot and ankle ordered, showing no signs of acute fracture or dislocation. There were some chronic changes that were mentioned, nothing to explain her pain. Due to patient's exam and negative radiographic findings, I suspect high ankle/syndesmotic sprain, and will make the patient nonweightbearing for 1 week or until she is cleared by Ortho, who I will refer her to. Patient instructed to take ibuprofen for pain as well as ice for added relief. Patient agrees with this plan and return precautions are given. Lab Data Radiology Impressions Ankle X-Ray 10/01/23 20:20 IMPRESSION: 1. Negative for fracture or dislocation. 2. Chronic appearing calcifications at the fibular and medial malleolar tips. 3. Small calcified heel spur. 4. Distal Achilles tendon degenerative calcification. Foot X-Ray 10/01/23 20:20 IMPRESSION: No acute findings. All radiology interpretation(s) finalized by discharge Discharge Plan Discharge Patient Disposition: Home Clinical Impression: High ankle sprain Qualifiers: Encounter type: initial encounter Laterality: right Qualified Code(s): S93.491A - Sprain of other ligament of right ankle, initial encounter Condition: Stable Prescriptions: No Action No Known Home Medications Discharge Orders: Discharge ED (Routine); Ordered 10/01/23 Ordered By: Dieudonne Cameron Referrals: Christiane Dalal FNP [Primary Care Provider] - Discharge Diet: Usual diet Discharge Activity: Increase activity as tolerated Patient Instructions: Ankle Sprain (ED) Activity Restrictions/Additional Instructions: Crutches and nonweightbearing until follow-up with orthopedics. Ice for added relief. Ibuprofen for pain. Return with any new or concerning symptoms. 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 [employer] Documented by User: Marcos Suh DO 10/04/23 08:55 HPI - Extremity Problem General: Chief complaint: Extremity Injury, Lower Stated complaint: right foot and ankle injury post fall Time Seen by Provider: 10/01/23 20:32 PFSH ED PFSH: Medical History Left ankle sprain No significant past medical history Surgical History H/O wisdom tooth extraction Hx of tympanostomy tubes Social History Smoking and tobacco/nicotine status: never used tobacco/nicotine Alcohol intake: never Substance/Drug Use: never Lives independently: Yes Household members: children Marital status: Single Current occupational status: employed Current occupation: [employer] – [place] Current occupational exposures/hazards: No Do you think of yourself as: Straight/Heterosexual Current gender identity: Female Course Vital Signs: Vital signs: Vital Signs Temperature 97.9 F 10/01/23 20:32 Pulse Rate 83 10/01/23 22:32 Respiratory Rate 16 10/01/23 22:32 Blood Pressure 121/79 10/01/23 22:32 Pulse Oximetry 99 10/01/23 22:32 MDM - Extremity (Nontraumatic) Medical Decision Making This patient was seen and evaluated due to acute onset of right foot and ankle pain status post fall today. On arrival patient's vitals normal and have remained stable throughout the course. Examination remarkable for some diffuse tenderness to palpation of the right foot, pain with all range of motion. I was able to appreciate a positive syndesmotic squeeze test of the ankle. Gave patient shot of Toradol, stating she feels better upon recheck. X-ray of the right foot and ankle ordered, showing no signs of acute fracture or dislocation. There were some chronic changes that were mentioned, nothing to explain her pain. Due to patient's exam and negative radiographic findings, I suspect high ankle/syndesmotic sprain, and will make the patient nonweightbearing for 1 week or until she is cleared by Ortho, who I will refer her to. Patient instructed to take ibuprofen for pain as well as ice for added relief. Patient agrees with this plan and return precautions are given. Chart reviewed Lab Data Radiology Impressions Ankle X-Ray 10/01/23 20:20 IMPRESSION: 1. Negative for fracture or dislocation. 2. Chronic appearing calcifications at the fibular and medial malleolar tips. 3. Small calcified heel spur. 4. Distal Achilles tendon degenerative calcification. Foot X-Ray 10/01/23 20:20 IMPRESSION: No acute findings. Discharge Plan Discharge Patient Disposition: Home Clinical Impression: High ankle sprain Qualifiers: Encounter type: initial encounter Laterality: right Qualified Code(s): S93.491A - Sprain of other ligament of right ankle, initial encounter Condition: Stable Prescriptions: No Action No Known Home Medications Discharge Orders: Discharge ED (Routine); Ordered 10/01/23 Ordered By: Dieudonne Cameron Referrals: Christiane Dalal FNP [Primary Care Provider] - Discharge Diet: Usual diet Discharge Activity: Increase activity as tolerated Patient Instructions: Ankle Sprain (ED) Activity Restrictions/Additional Instructions: Crutches and nonweightbearing until follow-up with orthopedics. Ice for added relief. Ibuprofen for pain. Return with any new or concerning symptoms. 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
[2023-10-01] MEDS: ketorolac 60 mg/2 mL INJ IM (20:47)
[2023-10-01 22:32] VITALS: BP 121/79; PULSE 83; RESP 16; O2SAT 99
--- NOTE | 2023-10-02 07:17 | DCPLANNER ---
A message was sent to ortho on 10/02/23 at 0718. [facility] to contact patient for appt
== END 2023-10-01 22:33 | disposition home or self-care (01) ==
PROVIDERS: Emergency Provider Physician Assistant; PCP Nurse Practitioner Family
DX: S93.491A Sprain of other ligament of right ankle, initial encounter (principal); W01.0XXA Fall on same level from slipping, tripping and stumbling without subsequent striking against object, initial encounter
CPT/HCPCS: 73610; 73630; 96372; 99284; E0114; J1885

== ENCOUNTER 2024-05-14 12:59 | Emergency (ER) | payer OTHER, MEDICAID, SELFPAY ==
[2024-05-14 14:29] VITALS: BP 107/67; PULSE 93; RESP 19; TEMP 36.6; O2SAT 98; BMI 35.4
--- NOTE | 2024-05-14 14:37 | XR_ITS ---
WS: [id number] Pelvis, AP view, 05/14/2024 Clinical Data: injury Comparison: None. Findings: No fractures or dislocations are seen. The SI joints and pubic symphysis are intact. The soft tissues are not remarkable. The hips show no fractures. XR/XR pelvis 1-2V* [id number] Impression: Negative for fracture.
--- NOTE | 2024-05-14 14:37 | XR_ITS ---
WS: [id number] Left hip, AP and frog-leg views, 05/14/2024 Clinical Data: injury Comparison: Left hip, 04/21/2014 Findings: No fractures or dislocations are seen. The left hip joint is intact. The soft tissues are not remarka ble. The adjacent pelvis is normal. XR/XR hip LT 2-3V wo/w pel* [id number] Impression: Negative left hip.
--- NOTE | 2024-05-14 15:54 | ED_ITS ---
HPI - Extremity Problem General: Chief complaint: Back Pain/Injury Stated complaint: Fall - left side/leg injury Time Seen by Provider: 05/14/24 15:18 Source: patient Mode of arrival: wheelchair Limitations: no limitations History of Present Illness: Patient is a 43-year-old female presents to ED today with complaint of pain around her left hip after tripping and falling earlier today. She states she tripped over an uneven surface and feels like her legs did the splits. She is having pain around her left hip and pelvis. She denies fall directly onto the extremity. She has no other injuries or complaints at this time. MD Complaint: joint pain Onset (ago): hour(s) Pain Consistency: constant Location: left and lower extremity Radiation: none Relieving factors: nothing Exacerbating factors: weight bearing and walking Associated symptoms: Reports no associated symptoms Related Data Previous Rx's Medication Instructions Recorded meclizine 25 mg tablet 50 mg (2 x 25 mg) PO TID PRN 02/17/24 dizziness #60 tabs ondansetron 8 mg disintegrating 8 mg PO Q8H PRN nausea and 02/17/24 tablet vomiting 5 days #15 tabs ibuprofen 800 mg tablet 800 mg PO Q8H PRN pain #20 tabs 05/14/24 methocarbamol 500 mg tablet 1,000 mg (2 x 500 mg) PO Q8H #30 05/14/24 tabs methylprednisolone 4 mg tablets in See Rx Instructions PO .COMPLEX 05/14/24 a dose pack (Medrol (Wing)) #21 ea Allergies Allergy/AdvReac Type Severity Reaction Status Date / Time Penicillins Allergy ALGY-Anaphy Verified 05/14/24 14:33 laxis Review of Systems Musc: Reports: joint pain (L hip) and limited range of motion (L hip); Denies: neck pain, back pain, extremity pain, extremity swelling, joint swelling, joint redness or joint warmth Neuro: Reports: difficulty walking; Denies: numbness in extremities, weakness in extremities or sensory changes PFS ED PFSH: Medical History Left ankle sprain No significant past medical history Surgical History H/O wisdom tooth extraction Hx of tympanostomy tubes Social History Smoking and tobacco/nicotine status: unknown if used tobacco/nicotine Alcohol intake: never Substance/Drug Use: never Lives independently: Yes Household members: children Marital status: Single Current occupational status: employed Current occupation: [employer] Current occupational exposures/hazards: No Do you think of yourself as: Straight/Heterosexual Current gender identity: Female Physical Exam Const: COMMON NORMALS: no acute distress, patient oriented x3, no limitations and well nourished GENERAL APPEARANCE: cooperative NUTRITIONAL APPEARANCE: overweight Back/Pelvis: COMMON NORMALS: thoracic and lumbar spine normal to inspection, no thoracic nor lumbar tenderness, thoraco-lumbar ROM normal and straight leg raise negative bilaterally Extremity: COMMON NORMALS: capillary refill normal, no joint enlargement, no clubbing, cyanosis or edema, no calf tenderness and no pedal edema GENERAL: Yes normal exam except as noted LEFT LOWER EXTREMITY: Yes hip joint (TTP posterolateral hip) Left hip: Yes inspection (normal gross inspection), Yes ROM (full but discomfort elicited ) and Yes neurovascular exam (normal) Neuro: COMMON NORMALS: patient oriented x3, moves all extremities, no focal motor deficits and no sensory deficits noted Course Vital Signs: Vital signs: Vital Signs Temperature 97.8 F 05/14/24 14:29 Pulse Rate 93 05/14/24 14:29 Respiratory Rate 19 H 05/14/24 14:29 Blood Pressure 107/67 05/14/24 14:29 Pulse Oximetry 98 05/14/24 14:29 Oxygen Delivery Me thod Room Air 05/14/24 14:29 MDM - Extremity (Nontraumatic) Medical Decision Making XRs of her hip and pelvis are unremarkable. She will be treated with anti- inflammatories, steroids, muscle relaxers. Recommend she follow-up with primary care doctor next week if symptoms do not seem to be improving. Other conserva tive therapy such as ice and heat discussed. Return to precautions given. Medical Records I reviewed the patient's medical records. Lab Data Radiology Impressions Hip/Pelvis X-Ray 05/14/24 14:37 Impression: Negative left hip. Pelvis X-Ray 05/14/24 14:37 Impression: Negative for fracture. All radiology interpretation(s) finalized by discharge Discharge Plan Discharge Patient Disposition: Home Clinical Impression: Muscle strain of left hip Qualifiers: Encounter type: initial encounter Qualified Code(s): S76.012A - Strain of muscle, fascia and tendon of left hip, initial encounter Condition: Stable Prescriptions: New methocarbamol 500 mg tablet 1,000 mg PO Q8H Qty: 30 0RF ibuprofen 800 mg tablet 800 mg PO Q8H PRN (Reason: pain) Qty: 20 0RF methylprednisolone [Medrol (Wing)] 4 mg tablets,dose pack See Rx Instructions .ROUTE .COMPLEX Qty: 21 0RF Rx Instructions: orally per package directions No Action meclizine 25 mg tablet 50 mg PO TID PRN (Reason: dizziness) Qty: 60 0RF ondansetron 8 mg tablet,disintegrating 8 mg PO Q8H PRN (Reason: nausea and vomiting) 5 Days Qty: 15 0RF Discharge Orders: Discharge ED (Routine); Ordered 05/14/24 Ordered By: Kassi Rodriguez Referrals: Christiane Dalal FNP [Primary Care Provider] - Coding Level of Care Code ED Edge Glue Machine Tender for Ramin Carter
[2024-05-14] MEDS: ketorolac 60 mg/2 mL INJ IM (16:19)
[2024-05-14 16:21] VITALS: RESP 20; O2SAT 96
[2024-05-14] MEDS: morphine 4 mg/mL SDV 1 mL IM (16:21)
[2024-05-14 16:34] VITALS: BP 107/68; PULSE 89; O2SAT 97
== END 2024-05-14 16:37 | disposition home or self-care (01) ==
PROVIDERS: Emergency Provider Physician Assistant; PCP Nurse Practitioner Family
DX: S76.012A Strain of muscle, fascia and tendon of left hip, initial encounter (principal); W19.XXXA Unspecified fall, initial encounter
CPT/HCPCS: 72170; 73502; 96372; 99284; E0114; J1885; J2270

== ENCOUNTER 2025-02-18 21:09 | Outpatient (CLI) | payer OTHER, SELFPAY ==
[2025-02-18 21:47] LABS: PCP Screen Urine Negative (Negative)
== END 2025-02-18 21:10 | disposition home or self-care (01) ==
LOC: LAB 21:10
PROVIDERS: PCP Nurse Practitioner Family; Visit Provider Family Medicine
DX: Z01.89 Encounter for other specified special examinations (principal)
CPT/HCPCS: 80306

== ENCOUNTER 2025-04-11 19:35 | Emergency (ER) | payer OTHER, SELFPAY ==
--- NOTE | 2025-04-11 19:40 | XRR_ITS ---
PROCEDURE INFORMATION: Exam: XR Chest Exam date and time: 04/11/2025 7:55 PM Age: 44 years old Clinical indication: Shortness of breath TECHNIQUE: Imaging protocol: Radiologic exam of the chest. Views: 1 view. COMPARISON: CR XR chest 2V* [id number] 09/08/2023 4:25 PM FINDINGS: Lungs: Unremarkable. No consolidation. Pleural spaces: Unremarkable. No pleural effusion. No pneumothorax. Heart/Mediastinum: Unremarkable. No cardiomegaly. Bones/joints: Unremarkable. XR/XR chest 1V portable [id number] IMPRESSION: No acute findings.
[2025-04-11 19:44] VITALS: BP 143/75; PULSE 81; RESP 18; TEMP 36.7; O2SAT 97; BMI 36.3
--- OUTSIDE RECORDS SUMMARY | 2025-04-11 19:44 | XMS_ITS | Clinical Summary ---
Author Organization [facility] de Address [address] [place] [place] [address] Phone Care Team Providers Care Mortar Maker Name Role Phone Gordo Rae DO Primary Care Provider [phone] Allergies Active Allergy Reactions Criticality Noted Date Comments Penicillins Hives High 11/04/2007 Medications polymyxin B sulf-trimethopri m (POLYTRIM) 10,000 unit- 1 mg/mL solution 0 9 Active methylPREDNISolo ne (MEDROL DOSPACK) 4 mg Tablets, Dose Pack Take as directed 21 Tablet 3 Active Additional Information Patient not taking.Reported on 01/26/2025 diclofenac sodium (VOLTAREN) 75 mg Tablet, Delayed Release (E.C.)Indication s:Pain of right hip,Pain in both knees, unspecified chronicity Take 1 Tablet (75 mg) by mouth 2 times daily. 60 Tablet 5 Active Additional Information Patient not taking.Reported on 04/01/2025 Hospital, Clinic, or Other Facility Administered Medication Ordered Dose Route Frequency Start Date End Date Status triamcinolone acetonide (KENALOG-40) injectable suspension 80 mgIndications:Left hamstring injury, sequela 80 mg Intra-arTIC u ONE TIME ONLY 04/01/2025 04/01/2025 Ended triamcinolone acetonide (KENALOG-40) injectable suspension 80 mgIndications:Left hamstring injury, sequela 80 mg Intra-arTIC u ONE TIME ONLY 04/01/2025 04/01/2025 Ended Active Problems Problem Noted Date Diagnosed Date Acute bilateral low back pain with bilateral sci atica 03/31/2023 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, 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 Dry eyes, 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 Allergic conjunctivitis of both eyes 11/05/2017 Hyperopia with regular astigmatism, bilateral Sprain of hand, thumb, right 06/05/2011 MP (metacarpophalangeal) joint sprain-right 03/31 Dental caries 07/01/2009 Depression Resolved Problems Problem Noted Date Diagnosed Date Resolved Date Patellofemoral pain syndrome 02/21/2009 11/20/2009 Encounters Date Type Department Care Team Description 04/01/2025 11:00 AM CDT Office Visit [facility] [address] [place] [address] Tr Mercado DO Left hamstring injury, sequela (Primary Dx); Psoas tendinitis of left side 04/01/2025 7:05 AM CDT Ancillary Procedure [facility] [address] [place] [address] Tr Mercado DO Left hip pain 04/01/2025 Telephone [facility] [address] [place] [address] Luna Thomas PA Referral 03/11/2025 9:40 AM CDT Office Visit [facility] [address] [place] [address] Luna Thomas PA Left hip pain (Primary Dx) 03/11/2025 Orders Only [facility] [address] [place] [address] Luna Thomas PA Pain of right hip (Primary Dx); Avascular necrosis of hip, right (CMS/HCC) 02/01/2025 External Device Data ST[facility] ABSTRACTION Provider, Abstract 01/26/2025 1:45 PM CDT Ancillary Procedure [facility] [address] [id number] Luna Thomas PA Pain in both knees, unspecified chronicity 01/26/2025 1:20 PM CDT Office Visit [facility] [id number] [phone] uLna Thomas PA Pain of right hip (Primary Dx); Pain in both knees, unspecified chronicity 01/12/2025 External Device Data STL ABSTRACTION Provider, Abstract 01/11/2025 External Device Data STL ABSTRACTION Provider, Abstract from Last 3 Months Immunizations Immunization Administration Dates Next Due (TDVAX)(7 YRS UP) TETANUS AN D DIPHTHERIA TOXOIDS, ADSORBED (2 LF OF TETANUS TOXOID AND 2 LF OF DIPHTHERIA TOXOID), 0.5ML (PF), IM 02/09/2004 Influenza Seasonal Unspecifi ed Formulation IM 03/12/2011,04/03/2010,04/07/2009 Family History Medical History Relation Name Comments Cancer Maternal Grandfather Heart Disease Maternal Grandfather Cancer Maternal Grandmother Cataract Maternal Grandmother Heart Disease Maternal Grandmother High Cholesterol Maternal Grandmother Hypertension Maternal Grandmother Blindness Mother Detachment/Tears Mother Diabetes Mother Heart Disease Mother Hypertension Mother Other Mother Glaucoma Other 1 mggma Amblyopia Other 2 son Macular Degen Neg Hx Strabismus Neg Hx Relation Name Status Comments Maternal Grandfather Maternal Grandmother Mother (Age 58) pulmonary embolism Other 1 mggma Other 2 son Alive Social History Tobacco Use Types Packs/Day Years Used Date Smoking Tobacco: Never Smokeless Tobacco: Never Tobacco Cessation:Counseling Given: Not Answered Alcohol Use Standard Drinks/Week Comments No 0 (1 standard drink = 0.6 oz pur e alcohol) Comments No Sex and Gender Information Value Date Recorded Sex Assigned at Not on file Legal 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 Gender Identity Not on file Sexual Orientation Not on file Last Filed Vital Signs Vital Sign Reading Time Taken Comments Blood Pressure 110/80 04/01/2025 10:40 AM CDT Pulse 79 03/31/2023 6:44 PM CDT Temperature 36.6 C (97.9 F) 03/31/2023 5:22 PM CDT Respiratory Rate 18 03/31/2023 5:22 PM CDT Oxygen Saturation 100% 03/31/2023 6:44 PM CDT Inhaled Oxygen Concentration - - Weight 115.2 kg (254 lb) 04/01/2025 10:40 AM CDT Height 175.3 cm (5' 9 ) 04/01/2025 10:40 AM CDT Body Mass Index 37.51 04/01/2025 10:40 AM CDT Plan of Treatment Health Maintenance Due Date Last Done Comments Pre-Diabetes and Diabetes Screening 1981 HEPATITIS B VACCINES (1 of 3 - 19+ 3-dose series) 2000 HPV/Cotest (21-29) 2002 DTAP/TDAP/TD VACCINES (1 - Tdap) 02/10/2004 02/09/20 04 HPV VACCINES (1 - 3-dose SCD M series) 2008 HPV/Cotest (30-65) 12/17/2011 CERVICAL CANCER SCREENING 12/03/2013 PAP SMEAR 12/03/2013 12/03/2010, 10/29, 10/17/2008, Additional history exists BREAST CANCER SCREENING 2021 INFLUENZA VACCINE (#1) 2025 1, 04/03/2010, 04/07/2009 Procedures Procedure Name Priority Date/Time Associated Diagnosis Comments US GUIDE NEEDLE PLACEMENT Routine 04/01/2025 1:42 PM CDT Left hip pain XR KNEE 4+ VW BILAT Stat 01/26/2025 2 :13 PM CDT Pain in both knees, unspecified chronicity from Last 3 Months Results * US GUIDE NEEDLE PLACEMENT (04/01/2025 1:42 PM CDT) Anatomical Region Laterality Modality Ultrasound Narrative 04/04/2025 4:12 PM CDT Left psoas tendon/bursa injection Ultrasound Guidance: Yes. Ultrasound guidance was necessary to adequately identify the area of injection for appropriate needle placement. Time out performed for Ultrasound Guided Injection Verbal Consent received Yes Laterality Confirmed Yes Site Marked Yes Discussed risks associated with the procedure including bleeding, infection, and the patient agreed to move forward with the procedure. Landmarks reviewed, and the area prepped in sterile fashion with chlorhexidine pad x 3. Under ultrasound guidance, the psoas tendon/bursa was visualized and a 22-gauge 3-inch needle was inserted into the bursa. The location of needle placement injection was performed with the injectate being comprised of 4 mL of 1% lidocaine without epinephrine, 80 mg (2mL) Kenalog. The needle was withdrawn, hemostasis maintained and a bandage applied. Post-injection instructions and warnings for infection or reaction reviewed with patient. The patient tolerated the procedure well without complications. Ultrasound-guided left hamstring origin injection: After written informed was obtained overlying the risks, benefits, and alternatives to injection, the patient was placed in a prone position with affected buttock exposed. Time out was performed. Using a CyberSettle ultrasound machine and a C80 curvilinear probe, the ischial tuberosity and hamstring muscle origins were identified. The transducer was oriented in longitudinal and horizontal axes and the area of maximal tenderness to sonopalpation was identified. This was noted to correspond with inflammation of the tendon sheaths as visual The skin was then cleaned of ultrasound gel and prepped with ChloraPrep in usual fashion. Using a 22-gauge 4 inch spinal needle, the needle was directed toward the semitendinosis tendon sheath at the origin under direct ultrasonic visualization. After negative aspiration, a syringe containing a mixture of 4 mL of 1% lidocaine without epinephrine, 80 mg Kenalog was injected into the tendon sheath without resistance. Patient tolerated procedure well without complications. EBL <5mL. Hemostasis obtained with pressure and bandage was applied. Tr Mercado DO ORDERABLES Final Result * XR KNEE 4+ VW BILAT (01/26/2025 2:13 PM CDT) Anatomical Region Laterality Modality Lower Extremity Computed Radiogr aphy Narrative 01/27/2025 5:04 PM CDT X-ray of bilateral knees: No obvious fracture or dislocation with mild degenerative changes noted of the patellofemoral joint space. [facility] DERABLES Final Result from Last 3 Months Insurance [facility] Care Teams Mortar Maker Relationship Specialty Start Date End Date Gordo Rae DO [address] [place] [address] PCP - General 10/01/20
[2025-04-11 19:51] VITALS: BP 143/70; PULSE 88; RESP 18; O2SAT 97
--- NOTE | 2025-04-11 20:21 | ED_ITS ---
HPI - General Adult General: Chief complaint: Upper Respiratory Infection Stated complaint: SOB Time Seen by Provider: 04/11/25 19:52 History of Present Illness: Patient is a 44-year-old female presenting with a chief complaint of dry cough for couple of weeks. Patient states that in the past 1 week, she has not had a fever. Her symptoms did not start with runny nose or sore throat but she has had fatigue and malaise. Patient states that she feels more fatigued with exertion but denies productive cough, hemoptysis, shortness of breath with exertion, chest pain, chest pain with deep respirations, syncope, asymmetric leg swelling or edema. Patient has not had any abdominal pain, nausea, vomiting, diarrhea or dysuria. She states that her son has had upper respiratory symptoms with asthma exacerbation a few days before her symptoms started. She was seen on an outpatient basis and advised that she may be dealing with allergies and was not prescribed antibiotics; she is wondering if she needs them. 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 She does not smoke. She has no history of coagulopathy, DVT, PE, recent surgery or recent prolonged travel/immobilization. Patient does not take hormone therapy. Related Data Previous Rx's ?Medication ?Instructions ?Recorded meclizine 25 mg tablet 50 mg (2 x 25 mg) PO TID PRN 02/17/24 dizziness #60 tabs ondansetron 8 mg disintegrating 8 mg PO Q8H PRN nausea and 02/17/24 tablet vomiting 5 days #15 tabs ibuprofen 800 mg tablet 800 mg PO Q8H PRN pain #20 t abs 05/14/24 methocarbamol 500 mg tablet 1,000 mg (2 x 500 mg) PO Q 8H #30 05/14/24 tabs methylprednisolone 4 mg tablets in See Rx Instructions PO .COMPLEX 05/14/24 a dose pack (Medrol (Wing)) #21 ea benzonatate 200 mg capsule 200 mg PO TID PRN cough #30 caps 04/11/25 Allergies Allergy/AdvReac Type Severity Reaction Status Date / Time Penicillins Allergy ALGY-Anaphy Verified 04/11/25 19:48 laxis [facility] ED PFSH: Medical History Left ankle sprain No significant past medical history Surgical History H/O wisdom tooth extraction Hx of tympanostomy tubes Social History Smoking and tobacco/nicotine status: unknown if used tobacco/nicotine Alcohol intake: never Substance/Drug Use: never Lives independently: Yes Household members: children Marital status: Single Current occupational status: employed Current occupation: [employer] [place] Current occupational exposures/hazards: No Do you think of yourself as: Straight/Heterosexual Current gender identity: Female Physical Exam Narrative: EXAM NARRATIVE: Vitals were reviewed. Patient is alert, oriented nontoxic-appearing. Neck is supple, no meningeal signs. Patient is not tachypneic, there is no accessory muscle use. She has clear lung sounds bilaterally without wheezing, crackles, rhonchi or stridor. She is afebrile. Heart sounds are normal without murmur. Abdomen is soft, nondistended nontender. There is no lower extremity asymmetry or edema. No rashes appreciated. Course Vital Signs: Vital signs: Vital Signs Temperature 98.0 F 04/11/25 19:44 Pulse Rate 66 04/11/25 20:56 Respiratory Rate 18 04/11/25 20:56 Blood Pressure 119/83 04/11/25 20:56 Pulse Oximetry 94 04/11/25 20:56 Oxygen Delivery Me thod Room Air 04/11/25 20:56 MDM - General Adult Medical Decision Making Patient is a 44-year-old female presenting with a chief complaint of couple of weeks of dry cough, generalized fatigue and malaise. Symptoms started after a family member had experienced similar symptoms. Differential diagnosis includes, but is limited to, viral upper respiratory infection such as COVID-19, RSV, influenza, pneumonia, acute bronchitis, asthma exacerbation, CHF, PE, other. On my exam, patient is HemoCue stable, nontoxic-appearing. She does not have increased work of breathing, she is not tachypneic, SpO2 is 97% on room air and she has clear lung sounds bilaterally. Chest x-ray was personally reviewed and interpreted and I do not appreciate an acute consolidation, pleural effusion, pneumothorax or obvious mass. She has a known nodule which is followed by primary care physician. She was screened w/COVID/FLU/RSV which are negative. I considered a PE in this patient but PERC rule indicates a score of 0 and overall I have a low clinical suspicion for this. Will treat supportively w/cough medications, observation; patient has f/u w/PCP in three days. She was counseled on return precautions, advised on supportive care and discharged in a stable condition. Lab Data Radiology Impressions Chest X-Ray 04/11/25 19:40 IMPRESSION: No acute findings. Laboratory Results Influenza A (PCR) Negative (Negative) 04/11/25 19:55 Influenza Type B (PCR) Negative (Negative) 04/11/25 19:55 RSV (PCR) Negative (Negative) 04/11/25 19:55 SARS-CoV-2 (PCR) Negative (Negative) 04/11/25 19:55 All radiology interpretation(s) finalized by discharge Discharge Plan Discharge Patient Disposition: Home Clinical Impression: Cough Qualifiers: Cough type: acute Qualified Code(s): R05.1 - Acute cough Condition: Stable Prescriptions: New benzonatate 200 mg capsule 200 mg PO TID PRN (Reason: cough) Qty: 30 0RF No Action meclizine 25 mg tablet 50 mg PO TID PRN (Reason: dizziness) Qty: 60 0RF ondansetron 8 mg tablet,disintegrating 8 mg PO Q8H PRN (Reason: nausea and vomiting) 5 Days Qty: 15 0RF methocarbamol 500 mg tablet 1,000 mg PO Q8H Qty: 30 0RF ibuprofen 800 mg tablet 800 mg PO Q8H PRN (Reason: pain) Qty: 20 0RF methylprednisolone [Medrol (Wing)] 4 mg tablets,dose pack See Rx Instructions .ROUTE .COMPLEX Qty: 21 0RF Rx Instructions: orally per package directions Discharge Orders: Discharge ED (Routine); Ordered 04/11/25 Ordered By: Alatgracia Lee Patient Instructions: Opioid Safety, Pain Management, Patient Portal & Tip Instructions, Acute Cough (ED) Activity Restrictions/Additional Instructions: Please continue supportive care at home with Tessalon Perles and [id number] cough medications. Continue to monitor your condition closely at home. If your condition worsens or additional concerns arise, please return to the emergency department for reassessment. Please follow-up with your primary care physician as scheduled in 3 days. Print Language: Vietnamese Coding Level of Care Code ED Farmworker Fur for Ramin Carter
[2025-04-11 20:40] LABS: Respiratory Syncytial Virus Ce NEGATIVE (Negative); SARS-CoV-2 PCR NEGATIVE (Negative)
[2025-04-11 20:56] VITALS: BP 119/83; PULSE 66; RESP 18; O2SAT 94
[2025-04-11 21:34] VITALS: BP 127/81; PULSE 70; O2SAT 95
== END 2025-04-11 21:34 | disposition home or self-care (01) ==
PROVIDERS: Emergency Medicine; Emergency Provider Emergency Medicine
DX: R05.9 Cough, unspecified (principal)
CPT/HCPCS: 71045; 87637; 99283; J8540

== ENCOUNTER → 2025-04-14 13:41 | Outpatient (BNVA) | payer OTHER, SELFPAY | PROVIDERS: PCP Family Medicine; Visit Provider Family Medicine | DX: Z13.6 Encounter for screening for cardiovascular disorders (principal) | CPT/HCPCS: 80053; 80061; 83036; 84443; 85025 ==